=== PATIENT | female | born 1955 ===

== ENCOUNTER 2018-09-20 16:09 | Outpatient (CLI) | payer OTHER | END 2018-09-20 16:10 | disposition home or self-care (01) | LOC: C.CTH 16:09 ==

== ENCOUNTER 2018-09-20 16:15 | Outpatient (CLI) | payer OTHER | END 2018-09-20 16:16 | disposition home or self-care (01) | LOC: C.RADH 16:15 ==

== ENCOUNTER 2018-11-04 13:24 | Outpatient (CLI) | payer OTHER | END 2018-11-04 13:25 | disposition home or self-care (01) | LOC: C.MAMMO 13:25 ==

== ENCOUNTER 2018-11-04 13:30 | Outpatient (CLI) | payer OTHER | END 2018-11-04 13:31 | disposition home or self-care (01) | LOC: C.CTH 13:31 ==